=== PATIENT | female | born 1975 | race Caucasian/White ===

== ENCOUNTER 2019-07-08 05:43 | Emergency (ER) | payer OTHER ==
[~2019-07-08] VITALS: Ht 160 cm; Wt 64.4 kg
[~2019-07-08 05:43] MED LIST: A/F PAIN RELIE500 MG PO; SYNTHROID75 MCG PO; TUSSI PRES-B L120 M1 PO; ZANTAC150 M3 PO
[2019-07-08] MEDS ORDERED: ZITHROMAX500 MG PO (09:12)
[2019-07-08] MEDS ORDERED: OSEL75CA PO (09:12)
[2019-07-08] MEDS ORDERED: TUSSI PRES-B L480 ML PO (09:16)
== END 2019-07-08 10:55 | disposition home or self-care (01) ==
LOC: EMR PED 05:43 → ER 05:43
DX: J11.1 Influenza due to unidentified influenza virus with other respiratory manifestations (principal); B96.0 Mycoplasma pneumoniae [M. pneumoniae] as the cause of diseases classified elsewhere

== ENCOUNTER 2020-03-17 16:26 | Emergency (ER) | payer OTHER ==
[~2020-03-17] VITALS: Ht 160 cm; Wt 63.5 kg
[~2020-03-17 16:26] MED LIST changes: +OSEL75CA PO; +TUSSI PRES-B L480 ML PO; +ZITHROMAX500 MG PO
== END 2020-03-17 21:45 | disposition home or self-care (01) ==
LOC: ER 16:26
DX: R06.02 Shortness of breath (principal); R05 Cough; F41.8 Other specified anxiety disorders